=== PATIENT | male | born 1985 | race Caucasian/White ===

== ENCOUNTER 2020-03-16 19:32 | Inpatient (IN) | payer OTHER, MEDICAID, SELFPAY ==
[2020-03-16 19:35] VITALS: BP 143/91; PULSE 96; RESP 24; TEMP 36.6; O2SAT 100; BMI 26.4
--- NOTE | 2020-03-16 19:49 | ED_ITS ---
HPI - Abdominal Pain <МАРИЯ Randall - Last Filed: 03/16/20 22:11> General Chief Complaint: Abdominal Pain Stated Complaint: GALL BLADDER ISSUES PREV/ SOB CHEST PAIN/SHOULDER Time Seen by Provider: 03/16/20 19:36 Source: patient Mode of arrival: Ambulatory Limitations: no limitations History of Present Illness HPI narrative: This is a 34 old male, smoker, with history of ADHD, back/leg pain, gallbladder and pancreas issues for last 1.5 year who recently was hospitalized at [facility] on 02/15/20-02/18/20 with pancreatitis and pneumonia and acute respiratory failure with hypoxia. He is here today with his significant other with chief complain of abdominal pain and nausea vomiting which started yesterday afternoon that has been progressively worsened. Patient reports pain is 8/10 with short of breath. Patient denies fever, chills. Patient states he had multiple tests while hospitalized such as echocardiogram, EKG, blood tests, lipase, CT and ultrasound (which was not able to locate in the record). He stays drinks 2 alcohol beverages about twice a week and he had a beer yesterday, takes MJ gummies occasionally but denies IV drug use. Has history of appendectomy and rhinoplasty. He takes Percocet occasionally for back and leg pain which she had taken 2 days ago. According to [facility] medical records, his initial lipase was 1600 which had improved to 75 and he was able to tolerate regular dietbefore discharged to home. On the 2nd day of admission he developed respiratory failure with hypoxia with O2 sat down to 55% in room air. At that time, CT for PE test was done with negative findings. Echocardiogram was done as well with EF of 60 to 65% without valvular defects. [place] test was negative at that time. Chest x-ray indicated by basilar infiltrates. CT of Abd/Pelvis indicated fatty infiltrated liver; pancreas is grossly unremarkable but with peripancreatic infiltration of the fat and minimal retroperitoneal pancreatic fluid. No pancreatic pseudocysts were appreciated. Gallbladder/bile ducts were unremarkable. Patient's condition improved with IV antibiotic medications and his O2 sat improved to 94% in room air and was discharged to home with 5 day course of Augmentin and small dose of oxycodone and to follow-up with primary care physician and to discuss referral to GI specialist. Related Data Home Medications Medication Instructions Recorded Confirmed dextroamphetamine-amphetamine 15 mg PO BID 03/17/20 03/17/20 Allergies Allergy/AdvReac Type Severity Reaction Status Date / Time vancomycin AdvReac Verified 03/16/20 21:00 Review of Systems <МАРИЯ Randall - Last Filed: 03/16/20 22:11> Review of Systems Narrative: General: Denies fever, chills, fatigue, malaise, sweats. HEENT: Denies sinus pain, ear pain, sore throat, difficulty swallowing, dizziness. Respiratory: Denies dyspnea, cough, wheezing, hemoptysis, sputum. Cardiovascular: Denies chest pain, palpitations, orthopnea, edema. Gastrointestinal: See HPI : Denies dysuria, frequency, incontinence, hematuria, urinary retention. Musculoskeletal: Denies weakness, joint pain or bony pain. Skin: Denies rash, skin lesions, or other. Neurologic: Denies weakness, headache, numbness, change in speech, confusion, seizures, incoordination. Psychiatric: No concerning psychosocial issues. 12-point review of systems is negative except for those stated above. Patient History <МАРИЯ Randall - Last Filed: 03/16/20 22:11> Family History (Updated 03/16/20 @ 23:43 by Martina Toscano MD) Mother Bipolar affective disorder Grandmother Pancreatitis Social History household members: none Smoking Status: Current some day smoker alcohol intake: current Smoking Status: Current every day smoker alcohol intake frequency: a few times a week Substance Use Type: marijuana Exam <МАРИЯ Randall - Last Filed: 03/16/20 22:11> Narrative Exam Narrative: GEN: Alert, oriented x 3, appears to be in discomfort and moderate distress. Holding the epigastric region and rocking back and forth while in gurney. Head: Normal cephalic, atraumatic. No scalp or temporal tenderness, palpable mass or rash. EYES: Pupils are equal, round, and reactive to light and accommodation. Ex traocular muscles are intact bilaterally. There is no subconjunctival hemorrhage, exudate and sclera non-icteric. ENT: Hearing grossly intact. Nose without bleeding, purulent discharge or deviation. Mucous membrane moist, no mucosal lesion. Throat without erythema, tonsillar hypertrophy or exudate. Uvula in midline, airway patent. Neck: Trachea in midline. No JVD, non-tender without lymphadenopathy. No masses or thyroid megaly. Supple, non-tender and no meningeal signs. CARDIAC: Normal regular rate and rhythm without murmurs, gallops, or rubs. No chest wall tenderness. No peripheral edema, cyanosis or pallor. Capillary refill is less than 2 seconds. RESPIRATORY: Lungs are clear to auscultate bilaterally. No cough, wheezes, rales, or rhonchi. No stridor, respiratory distress, increase work of breathing, or accessary muscle used. ABD: Abdomen soft and nondistended. Tender to palpate bilateral upper quadrants and epigastric region. No guarding or rebound tenderness to palpate. Bowel sounds are normal in all 4 quadrants. There is no palpable masses or organomegaly. EXT: Full painless ROM of all extremities with no loss of sensation, strength, effusion or edema. SKIN: Warm, dry, normal color for patient. No erythema, lesions or rash over visible areas. BACK: Nontender without deformity or crepitance. No flank tenderness. NEUROLOGICAL: Alert and oriented to place, time and person. Sensation and motor function intact bilaterally. No facial droops, dysphasia. PSYCHIATRIC: Good judgement and reason, without hallucinations, abnormal affect or abnormal behaviors during the examination. Patient is not suicidal. Initial Vital Signs Initial Vital Signs: Vital Signs Temperature 97.9 F 03/16/20 19:35 Pulse Rate 96 H 03/16/20 19:35 Respiratory Rate 24 03/16/20 19:35 Blood Pressure 143/91 H 03/16/20 19:35 Pulse Oximetry 100 03/16/20 19:35 <Logan Gardner DO - Last Filed: 03/17/20 05:35> Initial Vital Signs Initial Vital Signs: Vital Signs Temperature 97.9 F 03/16/20 19:35 Pulse Rate 96 H 03/16/20 19:35 Respiratory Rate 24 03/16/20 19:35 Blood Pressure 143/91 H 03/16/20 19:35 Pulse Oximetry 100 03/16/20 19:35 Scores <МАРИЯ Randall - Last Filed: 03/16/20 22:11> GCS [place] coma scale eye opening: Spontaneous [place] coma scale verbal response: Orientated [place] coma scale motor response: Obey commands [place] coma scale total score: 15 Course <Julian Lilo МАРИЯ - Last Filed: 03/16/20 22:11> Orders Ordered: ED Orders 03/16/20 20:30 XR chest 1V Stat 03/16/20 20:45 US abdomen limited Stat Bisacodyl (Dulcolax) 10 mg AL DAILY PRN PRN Reason: Constipation Enoxaparin Sodium (Lovenox) 40 mg SUBCUT DAILY [facility] Hydromorphone HCl (Dilaudid) 2 mg IV Q2H PRN PRN Reason: Pain, Severe (7-10) Last Admin: 03/17/20 03:45 Dose: 2 mg Documented by: RAMÍREZ Lactated Ringer's (Lactated Ringers) 1,000 mls @ 150 mls/hr IV CONT KATYA Last Admin: 03/17/20 00:08 Dose: 150 mls/hr Documented by: RAMÍREZ Famotidine (Pepcid) 20 mg in 50 mls @ 200 mls/hr IV Q12HR [facility] Last Infusion: 03/17/20 00:30 Dose: 0 mls/hr Documented by: Admin: 03/17/20 00:14 Dose: Not Given Documented by: Admin: 03/17/20 00:14 Dose: 200 mls/hr Documented by: RAMÍREZ Naloxone HCl (Narcan) 0.2 mg IV Q2MIN PRN PRN Reason: Opiate Reversal Ondansetron HCl (Zofran) 4 mg IV Q8HR PRN PRN Reason: Nausea And Vomiting Discontinued Medications Hydromorphone HCl (Dilaudid) 1 mg IV NOW ONE Stop: 03/16/20 20:20 Last Admin: 03/16/20 20:39 Dose: 1 mg Documented by: KURT Hydromorphone HCl (Dilaudid) 1 mg IV NOW ONE Stop: 03/16/20 21:08 Last Admin: 03/16/20 21:33 Dose: 1 mg Documented by: KURT Hydromorphone HCl (Dilaudid) 1.5 mg IV Q2H PRN PRN Reason: Pain, Severe (7-10) Last Admin: 03/17/20 02:04 Dose: 1.5 mg Documented by: Admin: 03/17/20 00:15 Dose: 1.5 mg Documented by: RAMÍREZ Sodium Chloride (Normal Saline 0.9%) 1,000 mls @ 150 mls/hr IV CONT KATYA Last Infusion: 03/16/20 22:52 Dose: 0 mls/hr Documented by: Admin: 03/16/20 19:59 Dose: 150 mls/hr Documented by: KURT Morphine Sulfate (Morphine) 4 mg IV NOW ONE Stop: 03/16/20 19:48 Last Admin: 03/16/20 19:59 Dose: 4 mg Documented by: KURT Ondansetron HCl (Zofran) 4 mg IV NOW ONE Stop: 03/16/20 19:47 Last Admin: 03/16/20 20:00 Dose: 4 mg Documented by: KURT Pantoprazole Sodium (Protonix) 40 mg IV NOW ONE Stop: 03/16/20 20:20 Last Admin: 03/16/20 20:39 Dose: 40 mg Documented by: KURT Vital Signs Vital signs: Vital Signs - 8 hr 03/16/20 19:35 03/16/20 20:45 Temperature 97.9 F Pulse Rate 96 H 78 Respiratory Rate 24 18 Blood Pressure 143/91 H Blood Pressure [Left Arm] 156/99 H Pulse Oximetry 100 96 <Logan Gardner, - Last Filed: 03/17/20 05:35> Orders Ordered: ED Orders 03/16/20 20:30 XR chest 1V Stat 03/16/20 20:45 US abdomen limited Stat Bisacodyl (Dulcolax) 10 mg AL DAILY PRN PRN Reason: Constipation Enoxaparin Sodium (Lovenox) 40 mg SUBCUT DAILY [facility] Hydromorphone HCl (Dilaudid) 2 mg IV Q2H PRN PRN Reason: Pain, Severe (7-10) Last Admin: 03/17/20 03:45 Dose: 2 mg Documented by: RAMÍREZ Lactated Ringer's (Lactated Ringers) 1,000 mls @ 150 mls/hr IV CONT KATYA Last Admin: 03/17/20 00:08 Dose: 150 mls/hr Documented by: RAMÍREZ Famotidine (Pepcid) 20 mg in 50 mls @ 200 mls/hr IV Q12HR [facility] Last Infusion: 03/17/20 00:30 Dose: 0 mls/hr Documented by: Admin: 03/17/20 00:14 Dose: Not Given Documented by: Admin: 03/17/20 00:14 Dose: 200 mls/hr Documented by: RAMÍREZ Naloxone HCl (Narcan) 0.2 mg IV Q2MIN PRN PRN Reason: Opiate Reversal Ondansetron HCl (Zofran) 4 mg IV Q8HR PRN PRN Reason: Nausea And Vomiting Discontinued Medications Hydromorphone HCl (Dilaudid) 1 mg IV NOW ONE Stop: 03/16/20 20:20 Last Admin: 03/16/20 20:39 Dose: 1 mg Documented by: KURT Hydromorphone HCl (Dilaudid) 1 mg IV NOW ONE Stop: 03/16/20 21:08 Last Admin: 03/16/20 21:33 Dose: 1 mg Documented by: KURT Hydromorphone HCl (Dilaudid) 1.5 mg IV Q2H PRN PRN Reason: Pain, Severe (7-10) Last Admin: 03/17/20 02:04 Dose: 1.5 mg Documented by: Admin: 03/17/20 00:15 Dose: 1.5 mg Documented by: RAMÍREZ Sodium Chloride (Normal Saline 0.9%) 1,000 mls @ 150 mls/hr IV CONT [facility] Last Infusion: 03/16/20 22:52 Dose: 0 mls/hr Documented by: Admin: 03/16/20 19:59 Dose: 150 mls/hr Documented by: KURT Morphine Sulfate (Morphine) 4 mg IV NOW ONE Stop: 03/16/20 19:48 Last Admin: 03/16/20 19:59 Dose: 4 mg Documented by: KURT Ondansetron HCl (Zofran) 4 mg IV NOW ONE Stop: 03/16/20 19:47 Last Admin: 03/16/20 20:00 Dose: 4 mg Documented by: KURT Pantoprazole Sodium (Protonix) 40 mg IV NOW ONE Stop: 03/16/20 20:20 Last Admin: 03/16/20 20:39 Dose: 40 mg Documented by: ZGELEYN Vital Signs Vital signs: Vital Signs - 8 hr 03/16/20 19:35 03/16/20 20:45 Temperature 97.9 F Pulse Rate 96 H 78 Respiratory Rate 24 18 Blood Pressure 143/91 H Blood Pressure [Left Arm] 156/99 H Pulse Oximetry 100 96 MDM - Abdominal Pain <Julian BRUCE NagyP - Last Filed: 03/16/20 22:11> Differential Diagnosis Differential diagnosis: Likely abdominal pain, pancreatitis and other (Cholecystitis, cholelithiasis, pneumonia, [place]) Medical Records Attestation: I reviewed the patient's medical records. Lab Data Attestation: I reviewed the patient's lab results. Result diagrams: 03/16/20 19:52 03/16/20 19:52 Labs: Lab Results 03/16/20 03/16/20 03/16/20 Range/Units 19:52 19:52 19:52 WBC 8.3 (4.5-11.0) X10^3/uL RBC 5.14 (4.5-5.9) X10^6/uL Hgb 16.9 (13.5-17.5) g/dL Hct 46.9 (41-53) % MCV 91.4 (80-100) fL MCH 32.8 (26-34) PG MCHC 35.9 (30-36) % RDW 14.0 (11.6-14.8) % Plt Count 202 (150-400) X10^3/uL Neut % (Auto) 65.4 (50-75) % Lymph % (Auto) 21.4 L (25-40) % [place] % (Auto) 7.0 (3-14) % Eos % (Auto) 5.8 H (2-4) % Baso % (Auto) 0.4 (0-2) % Neut # (Auto) 5400 (2064-6318) /uL Lymph # (Auto) 1800 (6739-9477) /uL [place] # (Auto) 600 (0-900) /uL Eos # (Auto) 500 H (0-450) /uL Baso # (Auto) 0 (0-100) /uL PT (10.1-12.7) SECONDS INR (0.9-1.3) APTT (26.4-36.2) SECONDS Sodium 138 (137-145) mmol/L Potassium 3.9 (3.4-5.1) mmol/L Chloride 107 (98-107) mmol/L Carbon Dioxide 22 (22-32) mmol/L BUN 14 (9-20) mg/dL Creatinine 0.73 (0.66-1.25) mg/dL Estimated GFR > 60.0 (>60) mL/min BUN/Creatinine Ratio 19.2 (6-22) Glucose 133 H (70-100) mg/dL Lactate (0.7-2.1) mmol/L Calcium 9.4 (8.4-10.2) mg/dL Total Bilirubin 0.4 (0.2-1.3) mg/dL AST 49 (17-59) IU/L ALT 44 (<50) IU/L Alkaline Phosphatase 102 (38-126) U/L Total Creatine Kinase (55-170) U/L CK-MB (CK-2) (<2.37) ng/mL CK-MB (CK-2) Rel Index (1.5-5.0) % Troponin I (0.01-0.034) ng/mL Total Protein 7.8 (6.3-8.2) g/dL Albumin 4.4 (3.5-5.0) g/dL Globulin 3.4 (1.7-4.1) g/dL Albumin/Globulin Ratio 1.3 (1.0-2.8) Lipase 4425 H (23-300) U/L Procalcitonin < 0.05 (<0.5) ng/mL Urine RBC (0-5/HPF) Urine WBC (0-5/HPF) Ur Squamous Epith Cells (0-5/HPF) Calcium Oxalate Crystal Urine Bacteria (None) Urine Mucus (Negative) Ur Culture Indicated? 03/16/20 03/16/20 03/16/20 Range/Units 19:52 19:52 19:52 WBC (4.5-11.0) X10^3/uL RBC (4.5-5.9) X10^6/uL Hgb (13.5-17.5) g/dL Hct (41-53) % MCV (80-100) fL MCH (26-34) PG MCHC (30-36) % RDW (11.6-14.8) % Plt Count (150-400) X10^3/uL Neut % (Auto) (50-75) % Lymph % (Auto) (25-40) % [place] % (Auto) (3-14) % Eos % (Auto) (2-4) % Baso % (Auto) (0-2) % Neut # (Auto) (2843-5109) /uL Lymph # (Auto) (8909-4126) /uL [place] # (Auto) (0-900) /uL Eos # (Auto) (0-450) /uL Baso # (Auto) (0-100) /uL PT 10.2 (10.1-12.7) SECONDS INR 0.9 (0.9-1.3) APTT 30 (26.4-36.2) SECONDS Sodium (137-145) mmol/L Potassium (3.4-5.1) mmol/L Chloride (98-107) mmol/L Carbon Dioxide (22-32) mmol/L BUN (9-20) mg/dL Creatinine (0.66-1.25) mg/dL Estimated GFR (>60) mL/min BUN/Creatinine Ratio (6-22) Glucose (70-100) mg/dL Lactate 1.6 (0.7-2.1) mmol/L Calcium (8.4-10.2) mg/dL Total Bilirubin (0.2-1.3) mg/dL AST (17-59) IU/L ALT (<50) IU/L Alkaline Phosphatase (38-126) U/L Total Creatine Kinase 165 (55-170) U/L CK-MB (CK-2) 0.79 (<2.37) ng/mL CK-MB (CK-2) Rel Index 0.5 L (1.5-5.0) % Troponin I < 0.012 (0.01-0.034) ng/mL Total Protein (6.3-8.2) g/dL Albumin (3.5-5.0) g/dL Globulin (1.7-4.1) g/dL Albumin/Globulin Ratio (1.0-2.8) Lipase (23-300) U/L Procalcitonin (<0.5) ng/mL Urine RBC (0-5/HPF) Urine WBC (0-5/HPF) Ur Squamous Epith Cells (0-5/HPF) Calcium Oxalate Crystal Urine Bacteria (None) Urine Mucus (Negative) Ur Culture Indicated? 03/16/20 Range/Units 20:13 WBC (4.5-11.0) X10^3/uL RBC (4.5-5.9) X10^6/uL Hgb (13.5-17.5) g/dL Hct (41-53) % MCV (80-100) fL MCH (26-34) PG MCHC (30-36) % RDW (11.6-14.8) % Plt Count (150-400) X10^3/uL Neut % (Auto) (50-75) % Lymph % (Auto) (25-40) % [place] % (Auto) (3-14) % Eos % (Auto) (2-4) % Baso % (Auto) (0-2) % Neut # (Auto) (2488-2643) /uL Lymph # (Auto) (6266-5090) /uL [place] # (Auto) (0-900) /uL Eos # (Auto) (0-450) /uL Baso # (Auto) (0-100) /uL PT (10.1-12.7) SECONDS INR (0.9-1.3) APTT (26.4-36.2) SECONDS Sodium (137-145) mmol/L Potassium (3.4-5.1) mmol/L Chloride (98-107) mmol/L Carbon Dioxide (22-32) mmol/L BUN (9-20) mg/dL Creatinine (0.66-1.25) mg/dL Estimated GFR (>60) mL/min BUN/Creatinine Ratio (6-22) Glucose (70-100) mg/dL Lactate (0.7-2.1) mmol/L Calcium (8.4-10.2) mg/dL Total Bilirubin (0.2-1.3) mg/dL AST (17-59) IU/L ALT (<50) IU/L Alkaline Phosphatase (38-126) U/L Total Creatine Kinase (55-170) U/L CK-MB (CK-2) (<2.37) ng/mL CK-MB (CK-2) Rel Index (1.5-5.0) % Troponin I (0.01-0.034) ng/mL Total Protein (6.3-8.2) g/dL Albumin (3.5-5.0) g/dL Globulin (1.7-4.1) g/dL Albumin/Globulin Ratio (1.0-2.8) Lipase (23-300) U/L Procalcitonin (<0.5) ng/mL Urine RBC 0-1/hpf (0-5/HPF) Urine WBC 0-1/hpf (0-5/HPF) Ur Squamous Epith Cells 0-1 /hpf (0-5/HPF) Calcium Oxalate Crystal Moderate H Urine Bacteria Occasional (0-1) (None) Urine Mucus 1+ H (Negative) Ur Culture Indicated? Cult not indicated Point of care testing: Urine Dip Bedside Urine Glucose Negative Bedside Urine Bilirubin + 1 Bedside Urine Ketone + 15 Urine Specific [place] 1.030 Bedside Urine Occult Blood - Negative Bedside Urine pH 5.5 Bedside Urine Protein + 30 Bedside Urine Urobilinogen - Negative Bedside Urine Nitrite - Negative Bedside Urine Leukocytes +/- 15 Esterase Imaging Data US - abdomen: Radiologist's Impression: [address] [address] Ultrasound Report Signed Patient: Ananth Jordna [facility]#: [id number] : 1985Acct:[id number] Age/Sex: 34 / MDate of Service: 03/16/20 Loc: ED Accession Number: [id number] Procedure: US abdomen limited Ordering Provider: Julian Nagy PROCEDURE: US ABDOMEN LIMITED INDICATIONS: EPIGASTRIC PAIN; ELEVATED LFTS TECHNIQUE: Real-time focused scanning was performed of the abdomen, with image documentation. COMPARISON: None. FINDINGS: The gallbladder is normal without stones, sludge, wall thickening, or pericholecystic fluid. The liver demonstrates moderately increased echogenicity diffusely. The extrahepatic common duct is normal caliber at 5.8 mm. The pancreas was not well seen. IMPRESSION: 1. Normal gallbladder. 2. Moderate hepatic steatosis or other intrinsic liver disease. Dictated by: Tanya Heck M.D. on 03/16/2020 at 21:48 Approved by: Tanya Heck M.D. on 03/16/2020 at 21:50 Chest x-ray: Radiologist's Impression: [address] [address] XRay Report Signed Patient: Ananth Jordan [facility]#: [id number] : 1985Acct:[id number] Age/Sex: 34 / MDate of Service: 03/16/20 Loc: ED Accession Number: [id number] Procedure: XR chest 1V Ordering Provider: Julian Nagy PROCEDURE: XR CHEST 1V INDICATIONS: c/o SOB, hx of bilateral bibasilar pneumonia about a month a TECHNIQUE: One view of the chest was acquired. COMPARISON: None. FINDINGS: Surgical changes and devices: None. Lungs and pleura: Lung volumes are low. [place] alveolar densities are seen in the infrahilar regions superimposed on scattered peribronchial thickening, particularly in the left suprahilar region. No pleural effusions or pneumothorax. Mediastinum: Mediastinal contours appear normal. Heart size is normal. Bones and chest wall: No suspicious bony lesions. Overlying soft tissues appear unremarkable. IMPRESSION: 1. Low lung volumes accentuate the bronchovascular markings. 2. Perihilar peribronchial thickening and questionable infrahilar streaky opacities. Suggest 2 view chest with improved inspiratory effort. Dictated by: Tanya Heck M.D. on 03/16/2020 at 21:27 Approved by: Tanya Heck M.D. on 03/16/2020 at 21:28 ECG Data Attestation: I personally reviewed and interpreted this ECG as follows: Prior ECG tracings: not available for review Interpretation: Sinus rhythm rate at 77. Normal [place]. AL interval 141, QRS duration 94, QT/QTC 365/395. No ST elevation or inverted T-waves. Q-waves in V1 and V2. MDM Narrative Medical decision making narrative: This is a 34-year-old male who presents to ED with epigastric pain and nausea and vomiting without fever or chills for last 2 days and short of breath. Patient was recently was treated for acute pancreatitis month ago and bilateral bibasilar pneumonia with acute respiratory failure at [facility] a month with hospitalization for 4 days. Patient states he has been able to tolerating small meals after he was dis charged to home. Lung sounds are clear to auscultate with O2 sat 100% in when he arrived. Initially patient had tachypnea with severe pain which improved to 18/min. Patient is afebrile with normal heart rate and slightly tachycardic. No leukocytosis with WBC of 8.3. Significantly elevated lipase of 4425 with normal liver function tests. Glucose 133 with normal lactate and procalcitonin. EKG was sinus rhythm without acute findings. Cardiac enzymes were negative. Normal coag and total bilirubin. Chest x-ray indicates perihilar peribronchial thickening and questionable infra healer streaky opacity. Patient's physical exam and O2 reading in room air is assuring. Dr. Toscano was consulted for an admission for acute pancreatitis and she recommended ultrasound test on abdomen to rule out impacted gallstone. Will consider MRCP tomorrow to follow up. The patient will be admitted for further evaluation and treatment for acute pancreatitis and etiology. Dr. Toscano kindly accepted patient's care for inpatient admission. Patient was treated with IV fluid, Zofran, several doses of morphine 4 mg, 1 mg Dilaudid x2, Protonix 40 mg for pain management. <Logan Gardner, - Last Filed: 03/17/20 05:35> Lab Data Labs: Lab Results 03/16/20 03/16/20 03/16/20 Range/Units 19:52 19:52 19:52 WBC 8.3 (4.5-11.0) X10^3/uL RBC 5.14 (4.5-5.9) X10^6/uL Hgb 16.9 (13.5-17.5) g/dL Hct 46.9 (41-53) % MCV 91.4 (80-100) fL MCH 32.8 (26-34) PG MCHC 35.9 (30-36) % RDW 14.0 (11.6-14.8) % Plt Count 202 (150-400) X10^3/uL Neut % (Auto) 65.4 (50-75) % Lymph % (Auto) 21.4 L (25-40) % [place] % (Auto) 7.0 (3-14) % Eos % (Auto) 5.8 H (2-4) % Baso % (Auto) 0.4 (0-2) % Neut # (Auto) 5400 (1815-3028) /uL Lymph # (Auto) 1800 (7254-9687) /uL [place] # (Auto) 600 (0-900) /uL Eos # (Auto) 500 H (0-450) /uL Baso # (Auto) 0 (0-100) /uL PT (10.1-12.7) SECONDS INR (0.9-1.3) APTT (26.4-36.2) SECONDS Sodium 138 (137-145) mmol/L Potassium 3.9 (3.4-5.1) mmol/L Chloride 107 (98-107) mmol/L Carbon Dioxide 22 (22-32) mmol/L BUN 14 (9-20) mg/dL Creatinine 0.73 (0.66-1.25) mg/dL Estimated GFR > 60.0 (>60) mL/min BUN/Creatinine Ratio 19.2 (6-22) Glucose 133 H (70-100) mg/dL Lactate (0.7-2.1) mmol/L Calcium 9.4 (8.4-10.2) mg/dL Total Bilirubin 0.4 (0.2-1.3) mg/dL AST 49 (17-59) IU/L ALT 44 (<50) IU/L Alkaline Phosphatase 102 (38-126) U/L Total Creatine Kinase (55-170) U/L CK-MB (CK-2) (<2.37) ng/mL CK-MB (CK-2) Rel Index (1.5-5.0) % Troponin I (0.01-0.034) ng/mL Total Protein 7.8 (6.3-8.2) g/dL Albumin 4.4 (3.5-5.0) g/dL Globulin 3.4 (1.7-4.1) g/dL Albumin/Globulin Ratio 1.3 (1.0-2.8) Lipase 4425 H (23-300) U/L Procalcitonin < 0.05 (<0.5) ng/mL Urine RBC (0-5/HPF) Urine WBC (0-5/HPF) Ur Squamous Epith Cells (0-5/HPF) Calcium Oxalate Crystal Urine Bacteria (None) Urine Mucus (Negative) Ur Culture Indicated? 03/16/20 03/16/20 03/16/20 Range/Units 19:52 19:52 19:52 WBC (4.5-11.0) X10^3/uL RBC (4.5-5.9) X10^6/uL Hgb (13.5-17.5) g/dL Hct (41-53) % MCV (80-100) fL MCH (26-34) PG MCHC (30-36) % RDW (11.6-14.8) % Plt Count (150-400) X10^3/uL Neut % (Auto) (50-75) % Lymph % (Auto) (25-40) % [place] % (Auto) (3-14) % Eos % (Auto) (2-4) % Baso % (Auto) (0-2) % Neut # (Auto) (7841-3191) /uL Lymph # (Auto) (5109-7620) /uL [place] # (Auto) (0-900) /uL Eos # (Auto) (0-450) /uL Baso # (Auto) (0-100) /uL PT 10.2 (10.1-12.7) SECONDS INR 0.9 (0.9-1.3) APTT 30 (26.4-36.2) SECONDS Sodium (137-145) mmol/L Potassium (3.4-5.1) mmol/L Chloride (98-107) mmol/L Carbon Dioxide (22-32) mmol/L BUN (9-20) mg/dL Creatinine (0.66-1.25) mg/dL Estimated GFR (>60) mL/min BUN/Creatinine Ratio (6-22) Glucose (70-100) mg/dL Lactate 1.6 (0.7-2.1) mmol/L Calcium (8.4-10.2) mg/dL Total Bilirubin (0.2-1.3) mg/dL AST (17-59) IU/L ALT (<50) IU/L Alkaline Phosphatase (38-126) U/L Total Creatine Kinase 165 (55-170) U/L CK-MB (CK-2) 0.79 (<2.37) ng/mL CK-MB (CK-2) Rel Index 0.5 L (1.5-5.0) % Troponin I < 0.012 (0.01-0.034) ng/mL Total Protein (6.3-8.2) g/dL Albumin (3.5-5.0) g/dL Globulin (1.7-4.1) g/dL Albumin/Globulin Ratio (1.0-2.8) Lipase (23-300) U/L Procalcitonin (<0.5) ng/mL Urine RBC (0-5/HPF) Urine WBC (0-5/HPF) Ur Squamous Epith Cells (0-5/HPF) Calcium Oxalate Crystal Urine Bacteria (None) Urine Mucus (Negative) Ur Culture Indicated? 03/16/20 Range/Units 20:13 WBC (4.5-11.0) X10^3/uL RBC (4.5-5.9) X10^6/uL Hgb (13.5-17.5) g/dL Hct (41-53) % MCV (80-100) fL MCH (26-34) PG MCHC (30-36) % RDW (11.6-14.8) % Plt Count (150-400) X10^3/uL Neut % (Auto) (50-75) % Lymph % (Auto) (25-40) % [place] % (Auto) (3-14) % Eos % (Auto) (2-4) % Baso % (Auto) (0-2) % Neut # (Auto) (3174-3817) /uL Lymph # (Auto) (9611-5888) /uL [place] # (Auto) (0-900) /uL Eos # (Auto) (0-450) /uL Baso # (Auto) (0-100) /uL PT (10.1-12.7) SECONDS INR (0.9-1.3) APTT (26.4-36.2) SECONDS Sodium (137-145) mmol/L Potassium (3.4-5.1) mmol/L Chloride (98-107) mmol/L Carbon Dioxide (22-32) mmol/L BUN (9-20) mg/dL Creatinine (0.66-1.25) mg/dL Estimated GFR (>60) mL/min BUN/Creatinine Ratio (6-22) Glucose (70-100) mg/dL Lactate (0.7-2.1) mmol/L Calcium (8.4-10.2) mg/dL Total Bilirubin (0.2-1.3) mg/dL AST (17-59) IU/L ALT (<50) IU/L Alkaline Phosphatase (38-126) U/L Total Creatine Kinase (55-170) U/L CK-MB (CK-2) (<2.37) ng/mL CK-MB (CK-2) Rel Index (1.5-5.0) % Troponin I (0.01-0.034) ng/mL Total Protein (6.3-8.2) g/dL Albumin (3.5-5.0) g/dL Globulin (1.7-4.1) g/dL Albumin/Globulin Ratio (1.0-2.8) Lipase (23-300) U/L Procalcitonin (<0.5) ng/mL Urine RBC 0-1/hpf (0-5/HPF) Urine WBC 0-1/hpf (0-5/HPF) Ur Squamous Epith Cells 0-1 /hpf (0-5/HPF) Calcium Oxalate Crystal Moderate H Urine Bacteria Occasional (0-1) (None) Urine Mucus 1+ H (Negative) Ur Culture Indicated? Cult not indicated Point of care testing: Urine Dip Bedside Urine Glucose Negative Bedside Urine Bilirubin + 1 Bedside Urine Ketone + 15 Urine Specific [place] 1.030 Bedside Urine Occult Blood - Negative Bedside Urine pH 5.5 Bedside Urine Protein + 30 Bedside Urine Urobilinogen - Negative Bedside Urine Nitrite - Negative Bedside Urine Leukocytes +/- 15 Esterase Discharge Plan Departure Patient Disposition: Admitted As Inpatient Clinical Impression: Pancreatitis Qualifiers: Chronicity: acute Pancreatitis type: unspecified pancreatitis type Acute pancreatitis complication: unspecified Qualified Code(s): K85.90 - Acute pancreatitis without necrosis or infection, unspecified Discharge Date/Time: 03/16/20 22:55 Referrals: Ramona Alvarez ARNP [Primary Care Provider] - Admit Date/Time: 03/16/20 21:54 Admit Provider: Martina Toscano
[2020-03-16] MEDS: MORPHINE 4 MG/ML INJ IV (19:59)
[2020-03-16] MEDS: SODIUM CHLORIDE 0.9% 1,000 ML 150 ML IV (19:59)
[2020-03-16] MEDS: ONDANSETRON 4 MG/2 ML INJ IV (20:00)
[2020-03-16 20:10] LABS: Alanine Aminotransferase 44 IU/L (<50); Albumin 4.4 g/dL (3.5-5.0); Albumin Globulin Ratio 1.3 (1.0-2.8); Alkaline Phosphatase 102 U/L (38-126); Aspartate Aminotransferase 49 IU/L (17-59); BUN Creatinine Ratio 19.2 (6-22); Bilirubin Total 0.4 mg/dL (0.2-1.3); Blood Urea Nitrogen 14 mg/dL (9-20); Calcium 9.4 mg/dL (8.4-10.2); Carbon Dioxide 22 mmol/L (22-32); Chloride 107 mmol/L (98-107); Estimated Glomerular Filt Rate > 60.0 mL/min (>60); Globulin 3.4 g/dL (1.7-4.1); Glucose 133 mg/dL (70-100); HEMOLYSIS < 15 (0-50); Potassium 3.9 mmol/L (3.4-5.1); Sodium 138 mmol/L (137-145); Total Protein 7.8 g/dL (6.3-8.2)
[2020-03-16 20:11] LABS: Add Manual Diff / Slide Review NO; Basophils Absolute Auto 0 /uL (0-100); Basophils Percent Auto 0.4 % (0-2); Eosinophils Absolute Auto 500 /uL (0-450); Eosinophils Percent Auto 5.8 % (2-4); Hematocrit 46.9 % (41-53); Hemoglobin 16.9 g/dL (13.5-17.5); Lactate (Lactic Acid) 1.6 mmol/L (0.7-2.1); Lymphocytes Absolute Auto 1800 /uL (1100-4500); Lymphocytes Percent Auto 21.4 % (25-40); Mean Corpuscular HGB Conc 35.9 % (30-36); Mean Corpuscular Hemoglobin 32.8 PG (26-34); Mean Corpuscular Volume 91.4 fL (80-100); Monocytes Absolute Auto 600 /uL (0-900); Neutrophils Absolute Auto 5400 /uL (1500-7000); Neutrophils Percent Auto 65.4 % (50-75); Platelet Count 202 X10^3/uL (150-400); Red Blood Cell Count 5.14 X10^6/uL (4.5-5.9); White Blood Cell Count 8.3 X10^3/uL (4.5-11.0)
[2020-03-16 20:15] LABS: INR 0.9 (0.9-1.3); Prothrombin Time 10.2 SECONDS (10.1-12.7)
[2020-03-16 20:17] LABS: PTT Partial Thromboplastin Tim 30 SECONDS (26.4-36.2)
[2020-03-16 20:26] LABS: Lipase 4425 U/L (23-300)
[2020-03-16 20:29] LABS: Creatine Kinase 165 U/L (55-170); Troponin I < 0.012 ng/mL (0.01-0.034)
[2020-03-16 20:30] LABS: CKMB % Relative Index 0.5 % (1.5-5.0); Creatine Kinase MB 0.79 ng/mL (<2.37)
--- NOTE | 2020-03-16 20:30 | DI.RAD.S_ITS ---
PROCEDURE: XR CHEST 1V INDICATIONS: c/o SOB, hx of bilateral bibasilar pneumonia about a month a TECHNIQUE: One view of the chest was acquired. COMPARISON: None. FINDINGS: Surgical changes and devices: None. Lungs and pleura: Lung volumes are low. Strandy alveolar densities are seen in the infrahilar regions superimposed on scattered peribronchial thickening, particularly in the left suprahilar region. No pleural effusions or pneumothorax. Mediastinum: Mediastinal contours appear normal. Heart size is normal. Bones and chest wall: No suspicious bony lesions. Overlying soft tissues appear unremarkable. IMPRESSION: 1. Low lung volumes accentuate the bronchovascular markings. 2. Perihilar peribronchial thickening and questionable infrahilar streaky opacities. Suggest 2 view chest with improved inspiratory effort. Dictated by: Tanya Heck M.D. on 03/16/2020 at 21:27 Approved by: Tanya Heck M.D. on 03/16/2020 at 21:28
[2020-03-16 20:35] LABS: Bacteria Urine Occasional (0-1); Calcium Oxalate Crystals Urine Moderate; Culture Indicated Urine Cult Not Indicated; Mucus Urine 1+ (Negative); RBC Urine 0-1/HPF (0-5/HPF); Squamous Epithelial Cell Urine 0-1 /HPF (0-5/HPF); WBC Urine 0-1/HPF (0-5/HPF)
[2020-03-16] MEDS: PANTOPRAZOLE 40 MG VIAL IV (20:39)
[2020-03-16] MEDS: HYDROMORPHONE 1 MG INJ IV ×2 (20:39→21:33)
[2020-03-16 20:41] LABS: Procalcitonin < 0.05 ng/mL (<0.5)
[2020-03-16 20:45] VITALS: BP 156/99; PULSE 78; RESP 18; O2SAT 96
--- NOTE | 2020-03-16 20:45 | DI.US.S_ITS ---
PROCEDURE: US ABDOMEN LIMITED INDICATIONS: EPIGASTRIC PAIN; ELEVATED LFTS TECHNIQUE: Real-time focused scanning was performed of the abdomen, with image documentation. COMPARISON: None. FINDINGS: The gallbladder is normal without stones, sludge, wall thickening, or pericholecystic fluid. The liver demonstrates moderately increased echogenicity diffusely. The extrahepatic common duct is normal caliber at 5.8 mm. The pancreas was not well seen. IMPRESSION: 1. Normal gallbladder. 2. Moderate hepatic steatosis or other intrinsic liver disease. Dictated by: Tanya Heck M.D. on 03/16/2020 at 21:48 Approved by: Tanya Heck M.D. on 03/16/2020 at 21:50
[2020-03-16 22:00] VITALS: BP 152/106; PULSE 75; RESP 21; O2SAT 97
--- NOTE | 2020-03-16 22:32 | PC.NURSE ---
Patient report was attempted: Ramón was not available.
--- NOTE | 2020-03-16 23:36 | DI.MRI.S_ITS ---
PROCEDURE: MR ABDOMEN WO CON INDICATIONS: r.o biliary lesion as cause of recurrent pancreatitis TECHNIQUE: Coronal HASTE through the abdomen, axial 2-D FLASH in- and [id number], and breath-hold T2 FSE with fat saturation through the biliary system and pancreas. Oblique coronal and axial thin-slice HASTE, radial thick-slab HASTE centered on the extrahepatic bile ducts. COMPARISON: [facility], US, US ABDOMEN LIMITED, 03/16/2020, 21:19. FINDINGS: Image quality: Excellent. Pancreas and biliary system: There is peripancreatic edema along the distal pancreatic body and tail consistent with acute pancreatitis. No loculated peripancreatic fluid collection or pancreatic duct dilatation. No discrete mass identified in the pancreas in the absence of intravenous contrast. Evaluation of the pancreatic duct is limited in the uncinate process. However, the main pancreatic duct appears to empty into the minor papilla with no definite segment visualized connecting to the major papilla. Findings are suggestive of pancreatic divisum. Gallbladder appears within normal limits without gallstones or wall thickening. No biliary ductal dilatation. Other solid organs: The liver demonstrates heterogeneous signal drop out on [id number] imaging consistent with fatty infiltration. Spleen is normal in size. No adrenal nodules. Kidneys demonstrate no hydronephrosis. Nodes and vessels: No retroperitoneal or mesenteric adenopathy by size criteria. Aorta and inferior vena cava are normal in size. Bowel and peritoneum: Unenhanced bowel loops are normal in caliber. No free fluid. Lung bases: No basal pleural effusions. Heart size is normal. Bones and soft tissues: No ventral hernias. Bone marrow is of normal overall signal. IMPRESSION: 1. Findings suggestive of pancreatic divisum, with evaluation limited by suboptimal visualization of the pancreatic duct in the uncinate process. No pancreatic duct dilatation. 2. No evidence of cholelithiasis, choledocholithiasis, or biliary ductal dilatation. 3. Peripancreatic edema consistent with acute pancreatitis. No loculated peripancreatic fluid collections. Dictated by: Santosh García M.D. on 03/17/2020 at 12:04 Approved by: Santosh García M.D. on 03/17/2020 at 12:28
--- NOTE | 2020-03-16 23:37 | P.HP_ITS ---
History of Present Illness History of Present Illness Date Patient Seen: 03/16/20 Chief complaint: GALL BLADDER ISSUES PREV/ SOB CHEST PAIN/SHOULDER Narrative: Patient is a 34-year-old male who presents with a history of recurrent pancreatitis. Patient has had 4 episodes of pancreatitis over the past 2 years. His 1st episode was in September 2018, he then had pancreatitis again in April of 2019. He was hospitalized in January of 2020 at [facility] for recurrent pancreatitis. The note abdominal ultrasound was obtained which was negative. The patient developed severe pneumonia associated with that. He was treated for antibiotics and ultimately discharge. He was in his usual state of health until yesterday when he developed a dull ache in the mid abdomen. He went to sleep and awoke this morning with progressive increasing abdominal pain. He had some nausea. He feels like a brick is in the upper portion of his abdomen. He does admit to drinking although infrequently. He had a glass of wine yesterday and 2 beers 2 days ago. He does take medications for ADHD, out Adderal. Patient's previously diagnosed with sleep apnea and then not diagnosed with sleep apnea. He completed his course of oral antibiotics. Patient was seen and evaluated in the emergency room. His lipase was elevated at over 4000. He did have an abdominal ultrasound which was negative for gallstones or biliary lesions. Patient's LFTs are normal. His white count is normal. Chest x-ray was obtained which showed some old residual hilar infiltrate. Patient is admitted to the hospital for further evaluation of acute pancreatitis. Patient was reportedly told he had gallstones in the past. He was referred to [facility] for a GI appointment but did not get therapy. He has not had any further workup and was discharged from [facility] with plans for an outpatient GI appointment. Patient History Family & Social History Family History (Updated 03/16/20 @ 23:43 by Martina Toscano MD) Mother Bipolar affective disorder Grandmother Pancreatitis Safety & Behavioral: Feels Safe in Current Yes Environment Tobacco & Substance use: Smoking Status Current every day smoker alcohol intake frequency a few times a week Substance Use Type marijuana Meds Home Medications and Allergies Allergies Allergy/AdvReac Type Severity Reaction Status Date / Time vancomycin AdvReac Verified 03/16/20 21:00 Review of Systems Review of Systems ROS: Yes All systems reviewed with the patient and are negative except as otherwise documented Exam Vital Signs (past 8 hours): - 03/16/20 19:35 03/16/20 20:45 03/16/20 22:00 Temperature 97.9 F Pulse Rate 96 H 78 75 Respiratory Rate 24 18 21 Blood Pressure 143/91 H Blood Pressure [Left Arm] 156/99 H 152/106 H Pulse Oximetry 100 96 97 Oxygen Delivery Method Room Air Narrative Exam Narrative: Pleasant 34-year-old male uncomfortable with abdominal pain HEENT: Normocephalic atraumatic, sclerae anicteric, extraocular muscles are intact, oropharynx is clear, neck is supple, no thyromegaly, Lungs: Clear to auscultation Cardiac exam: Regular rate and rhythm normal S1-S2 with a 2/6 systolic ejection murmur Abdomen: Mildly distended, tender in the midepigastric area no board-like rigidity, no rebound tenderness no hepatosplenomegaly noted, no palpable masses, no bruising or in is noted Extremities: No edema Neuro exam cranial nerves 2-12 are intact, strength is symmetric and equal, sensation goes intact, reflexes are 8 Psychiatric exam the patient is awake alert over appropriate and oriented Objective Labs Result Diagrams: 03/16/20 19:52 03/16/20 19:52 Labs: Laboratory Results - last 24 hr 03/16/20 03/16/20 03/16/20 19:52 19:52 19:52 WBC 8.3 RBC 5.14 Hgb 16.9 Hct 46.9 MCV 91.4 MCH 32.8 MCHC 35.9 RDW 14.0 Plt Count 202 Neut % (Auto) 65.4 Lymph % (Auto) 21.4 L [place] % (Auto) 7.0 Eos % (Auto) 5.8 H Baso % (Auto) 0.4 Neut # (Auto) 5400 Lymph # (Auto) 1800 [place] # (Auto) 600 Eos # (Auto) 500 H Baso # (Auto) 0 PT INR APTT Sodium 138 Potassium 3.9 Chloride 107 Carbon Dioxide 22 BUN 14 Creatinine 0.73 Estimated GFR > 60.0 BUN/Creatinine Ratio 19.2 Glucose 133 H Lactate Calcium 9.4 Total Bilirubin 0.4 AST 49 ALT 44 Alkaline Phosphatase 102 Total Creatine Kinase CK-MB (CK-2) CK-MB (CK-2) Rel Index Troponin I Total Protein 7.8 Albumin 4.4 Globulin 3.4 Albumin/Globulin Ratio 1.3 Lipase 4425 H Procalcitonin < 0.05 Urine RBC Urine WBC Ur Squamous Epith Cells Calcium Oxalate Crystal Urine Bacteria Urine Mucus Ur Culture Indicated? 03/16/20 03/16/20 03/16/20 19:52 19:52 19:52 WBC RBC Hgb Hct MCV MCH MCHC RDW Plt Count Neut % (Auto) Lymph % (Auto) [place] % (Auto) Eos % (Auto) Baso % (Auto) Neut # (Auto) Lymph # (Auto) [place] # (Auto) Eos # (Auto) Baso # (Auto) PT 10.2 INR 0.9 APTT 30 Sodium Potassium Chloride Carbon Dioxide BUN Creatinine Estimated GFR BUN/Creatinine Ratio Glucose Lactate 1.6 Calcium Total Bilirubin AST ALT Alkaline Phosphatase Total Creatine Kinase 165 CK-MB (CK-2) 0.79 CK-MB (CK-2) Rel Index 0.5 L Troponin I < 0.012 Total Protein Albumin Globulin Albumin/Globulin Ratio Lipase Procalcitonin Urine RBC Urine WBC Ur Squamous Epith Cells Calcium Oxalate Crystal Urine Bacteria Urine Mucus Ur Culture Indicated? 03/16/20 20:13 WBC RBC Hgb Hct MCV MCH MCHC RDW Plt Count Neut % (Auto) Lymph % (Auto) [place] % (Auto) Eos % (Auto) Baso % (Auto) Neut # (Auto) Lymph # (Auto) [place] # (Auto) Eos # (Auto) Baso # (Auto) PT INR APTT Sodium Potassium Chloride Carbon Dioxide BUN Creatinine Estimated GFR BUN/Creatinine Ratio Glucose Lactate Calcium Total Bilirubin AST ALT Alkaline Phosphatase Total Creatine Kinase CK-MB (CK-2) CK-MB (CK-2) Rel Index Troponin I Total Protein Albumin Globulin Albumin/Globulin Ratio Lipase Procalcitonin Urine RBC 0-1/hpf Urine WBC 0-1/hpf Ur Squamous Epith Cells 0-1 /hpf Calcium Oxalate Crystal Moderate H Urine Bacteria Occasional (0-1) Urine Mucus 1+ H Ur Culture Indicated? Cult not indicated Assessment & Plan Assessment & Plan narrative: Impression 1. 34-year-old male admitted to the hospital with recurrent acute pancreatitis -lipase 4445 -abdominal ultrasound reveals no biliary sludge or gallstones -patient has normal LFTs, and a normal white count -previous CT last month was essentially unremarkable except for pancreatic inflammation and minimal fluid but no pseudocyst -suggest MRCP tomorrow, if MRCP negative, would consult with Gastroenterology -patient may benefit from elective cholecystectomy given recurrent pancreatitis, will defer to General surgery and GI -doubt alcohol as a contributor -will check fasting lipid profile -continue IV hydration, NPO, and pain medication -further recommendations pending the results of above 2. ADHD -Adderall on hold 3. History of obstructive sleep apnea -patient will be on continuous pulse oximetry 4. DVT prophylaxis -Lovenox 40 mg per day Patient is a full code will note that his record accordingly Given the patient's recurrent history of pancreatitis anticipate he will be an inpatient with greater than 48 hours of care.
[2020-03-16 23:45] VITALS: BP 152/86; PULSE 67; RESP 20; TEMP 36.6; O2SAT 96
[2020-03-16 23:56] VITALS: BMI 27.8
[2020-03-17] MEDS: LACTATED RINGERS 1,000 ML 150 ML IV ×3 (00:08→14:39)
[2020-03-17] MEDS: FAMOTIDINE 20 MG/50 ML PIGGYBACK 200 MG IV ×2 (00:14→12:31)
[2020-03-17] MEDS: HYDROMORPHONE 2 MG INJ 1.5 MG IV ×2 (00:15→02:04)
--- NOTE | 2020-03-17 00:52 | PC.ADMIT ---
Addendum entered by Poly Nascimento R.N. 03/17/20 03:35: Notified Dr Toscano that current pain regimen was not as affective, new orders placed. Original Note: [address] Admission Note: The patient,Ananth Jordan,34 y/o, was given written information regarding hospital policies, unit procedures and contact persons. Patient's smoking status: Current some day smoker. Vital Signs - 8 hr 03/16/20 19:35 03/16/20 20:45 03/16/20 22:00 Temperature 97.9 F Pulse Rate 96 H 78 75 Respiratory Rate 24 18 21 Blood Pressure 143/91 H Blood Pressure [Left Arm] 156/99 H 152/106 H Pulse Oximetry 100 96 97 03/16/20 23:45 Temperature 97.8 F Pulse Rate 67 Respiratory Rate 20 Blood Pressure 152/86 H Blood Pressure [Left Arm] Pulse Oximetry 96 Patient arrived at 2245, was already in the room at time of assessment and admission on NOC shift. AxOx3, can make needs known. Reports this is the 4th episode of pancreatitis in 18 months. Clearly in distress at the time of assessment but is calm and appropriate with care, pain at 7/10, medicated per MAR. Lung sounds clear, on RA no cough, c/o SOB related to pain in abdomen. Bowel tones active, passing gas, last BM yesterday. No hx of fall. Elevated BP, denies chest pain. Educated cycle liaison light and use, bed alarm on for safety d/t sedating medications and active IV line, moderate fall risk. Acknowledge all teaching and safety measures.
[2020-03-17] MEDS: HYDROMORPHONE 2 MG INJ IV ×8 (03:45→18:31)
[2020-03-17 04:00] VITALS: BP 147/95; PULSE 82; RESP 18; TEMP 36.5; O2SAT 95
[2020-03-17 05:51] LABS: Alanine Aminotransferase 38 IU/L (<50); Albumin 3.9 g/dL (3.5-5.0); Albumin Globulin Ratio 1.3 (1.0-2.8); Alkaline Phosphatase 86 U/L (38-126); Aspartate Aminotransferase 39 IU/L (17-59); BUN Creatinine Ratio 16.5 (6-22); Bilirubin Total 0.5 mg/dL (0.2-1.3); Blood Urea Nitrogen 13 mg/dL (9-20); Carbon Dioxide 24 mmol/L (22-32); Chloride 108 mmol/L (98-107); Estimated Glomerular Filt Rate > 60.0 mL/min (>60); Globulin 3.1 g/dL (1.7-4.1); Glucose 100 mg/dL (70-100); HEMOLYSIS < 15 (0-50); Potassium 4.2 mmol/L (3.4-5.1); Sodium 138 mmol/L (137-145)
[2020-03-17 05:55] LABS: Cholesterol 172 mg/dL (140-199); HDL Cholesterol 61 mg/dL (40-60); LDL Cholesterol Calculated 68 mg/dL (<100); Triglycerides 216 mg/dL (35-150); VLDL Cholesterol Calculated 43 mg/dL (2-30)
[2020-03-17 05:58] LABS: Lipase 2766 U/L (23-300)
[2020-03-17 08:00] VITALS: BP 142/83; PULSE 76; RESP 18; TEMP 36.1; O2SAT 93
[2020-03-17] MEDS: ENOXAPARIN 40 MG/0.4 ML SYRINGE SUBCUT (08:30)
[2020-03-17 10:15] VITALS: O2SAT 94
[2020-03-17 12:00] VITALS: BP 139/92; PULSE 79; RESP 18; TEMP 36.6; O2SAT 94
--- NOTE | 2020-03-17 13:19 | PC.NURSE ---
Shift summary: A&O X3. Up to BR with SBA, steady on feet. Changed to clear liquid diet this afternoon. Given ice chips, water and jello and encouraged to take slowly. Reported increase in abd discomfort after eating jello so he's taking a break from that. Denies N/V. Abdomen soft, tender, mildly distended and may have increasing distention per patient report. MRI completed, Dr Dasilva aware. Patient able to make needs known and calls appropriately. Call light and belongings within reach.
--- NOTE | 2020-03-17 14:03 | P.DS_ITS ---
History of Present Illness History of Present Illness Date Patient Seen: 03/17/20 Time Patient Seen: 14:03 Chief complaint: GALL BLADDER ISSUES PREV/ SOB CHEST PAIN/SHOULDER Narrative: As per Dr. Toscano, Patient is a 34-year-old male who presents with a history of recurrent pancreatitis. Patient has had 4 episodes of pancreatitis over the past 2 years. His 1st episode was in September 2018, he then had pancreatitis again in April of 2019. He was hospitalized in January of [address] [facility] for recurrent pancreatitis. The note abdominal ultrasound was obtained which was negative. The patient developed severe pneumonia associated with that. He was treated for antibiotics and ultimately discharge. He was in his usual state of health until yesterday when he developed a dull ache in the mid abdomen. He went to sleep and awoke this morning with progressive increasing abdominal pain. He had some nausea. He feels like a brick is in the upper portion of his abdomen. He does admit to drinking although infrequently. He had a glass of wine yesterday and 2 beers 2 days ago. He does take medications for ADHD, out Adderal. Patient's previously diagnosed with sleep apnea and then not diagnosed with sleep apnea. He completed his course of oral antibiotics. Patient was seen and evaluated in the emergency room. His lipase was elevated at over 4000. He did have an abdominal ultrasound which was negative for gallstones or biliary lesions. Patient's LFTs are normal. His white count is normal. Chest x-ray wa s obtained which showed some old residual hilar infiltrate. Patient is admitted to the hospital for further evaluation of acute pancreatitis. Patient was reportedly told he had gallstones in the past. He was referred to [facility] for a GI appointment but did not get therapy. He has not had any further workup and was discharged from [facility] with plans for an outpatient GI appointment. Discharge Providers Provider Date of admission: 03/16/20 21:54 Discharge Date: 03/17/20 Primary care physician: МАРИЯ Soliz Discharge provider: Landon Dasilva DO Summary Hospital Course Discharge Diagnosis: 1. 34-year-old male admitted to the hospital with recurrent acute pancreatitis -lipase 4445 -abdominal ultrasound reveals no biliary sludge or gallstones -patient has normal LFTs, and a normal white count -previous CT last month was essentially unremarkable except for pancreatic inflammation and minimal fluid but no pseudocyst -suggest MRCP tomorrow, if MRCP negative, would consult with Gastroenterology -patient may benefit from elective cholecystectomy given recurrent pancreatitis, will defer to General surgery and GI -doubt alcohol as a contributor -will check fasting lipid profile -continue IV hydration, NPO, and pain medication -further recommendations pending the results of above 2. ADHD 3. History of obstructive sleep apnea Hospital Course: Mr. Jordan is a 34-year-old male with past medical history of pancreatitis, ADHD, and obstructive sleep apnea who was admitted with his 4th episode of pancreatitis in the past year and a half. He had had limited evaluations done previously by a outside hospitals. Abdominal ultrasound here showed no biliary sludge or gallstones, normal LFTs, and no leukocytosis. He had had a previous CT scan of his abdomen which showed pancreatic inflammation but no pseudocyst approximately 1 month ago done at an outside facility. Fasting lipid panel this AM showed a triglyceride level of 216, and patient does not endorse much alcohol intake. He was admitted and given adequate pain control, his abdominal pain improved slightly and he was started on some clear liquids after MRCP was performed. MRCP showed a pancreatic divisum and inflammation consistent with pancreatitis, but no gallbladder or evidence of ductal stones. Discussed with GI Dr. Herrera at [facility], who recommended transfer for additional evaluation including possible EUS or ERCP. Discussed with Dr. Mehta hospitalist, who accepts patient for transfer. Time Spent with Patient Time spent: Greater than 30 minutes Exam Vital Signs (past 8 hours): - 03/17/20 08:00 03/17/20 12:00 Temperature 97.0 F L 97.9 F Pulse Rate 76 79 Respiratory Rate 18 18 Blood Pressure 142/83 H 139/92 H Pulse Oximetry 93 94 Oxygen Delivery Method Room Air Oxygen Flow Rate 0 Narrative Exam Narrative: GENERAL APPEARANCE: Well developed, well nourished, in no acute distress. SKIN: Inspection of the skin reveals no rashes, ulcerations or petechiae. HEENT: Normocephalic atraumatic, extraocular muscles are intact, oropharynx is clear and mucous membranes are moist, neck is supple without adenopathy NECK: Supple and symmetric. There was no thyroid enlargement, and no tenderness, or masses were felt. CHEST: Normal AP diameter and normal contour without any kyphoscoliosis. LUNGS: Auscultation of the lungs revealed no wheezes, rhonchi, or rales. CARDIOVASCULAR: There was a regular rate and rhythm without any murmurs, gallops, rubs. Peripheral pulses were 2+ and symmetric. ABDOMEN: Soft, mild epigastric tenderness, mildly distended. No guarding or rebound. MUSCULOSKELETAL: There was no tenderness or effusions noted. Muscle strength and tone were normal. EXTREMITIES: No cyanosis, clubbing or edema. NEUROLOGIC: Alert and oriented x 3. Normal affect. Gait was normal. Strength is +5/5 in the Upper Extremities and Lower Extremities Bilaterally. Sensation to touch was normal. Objective Labs Result Diagrams: 03/16/20 19:52 03/17/20 05:05 Labs: Laboratory Results - last 24 hr 03/16/20 03/16/20 03/16/20 19:52 19:52 19:52 WBC 8.3 RBC 5.14 Hgb 16.9 Hct 46.9 MCV 91.4 MCH 32.8 MCHC 35.9 RDW 14.0 Plt Count 202 Neut % (Auto) 65.4 Lymph % (Auto) 21.4 L Maverick % (Auto) 7.0 Eos % (Auto) 5.8 H Baso % (Auto) 0.4 Neut # (Auto) 5400 Lymph # (Auto) 1800 Maverick # (Auto) 600 Eos # (Auto) 500 H Baso # (Auto) 0 PT INR APTT Sodium 138 Potassium 3.9 Chloride 107 Carbon Dioxide 22 BUN 14 Creatinine 0.73 Estimated GFR > 60.0 BUN/Creatinine Ratio 19.2 Glucose 133 H Lactate Calcium 9.4 Magnesium Total Bilirubin 0.4 AST 49 ALT 44 Alkaline Phosphatase 102 Total Creatine Kinase CK-MB (CK-2) CK-MB (CK-2) Rel Index Troponin I Total Protein 7.8 Albumin 4.4 Globulin 3.4 Albumin/Globulin Ratio 1.3 Triglycerides Cholesterol LDL Cholesterol, Calc VLDL Cholesterol HDL Cholesterol Lipase 4425 H Procalcitonin < 0.05 Urine RBC Urine WBC Ur Squamous Epith Cells Calcium Oxalate Crystal Urine Bacteria Urine Mucus Ur Culture Indicated? 03/16/20 03/16/20 03/16/20 19:52 19:52 19:52 WBC RBC Hgb Hct MCV MCH MCHC RDW Plt Count Neut % (Auto) Lymph % (Auto) Maverick % (Auto) Eos % (Auto) Baso % (Auto) Neut # (Auto) Lymph # (Auto) Maverick # (Auto) Eos # (Auto) Baso # (Auto) PT 10.2 INR 0.9 APTT 30 Sodium Potassium Chloride Carbon Dioxide BUN Creatinine Estimated GFR BUN/Creatinine Ratio Glucose Lactate 1.6 Calcium Magnesium Total Bilirubin AST ALT Alkaline Phosphatase Total Creatine Kinase 165 CK-MB (CK-2) 0.79 CK-MB (CK-2) Rel Index 0.5 L Troponin I < 0.012 Total Protein Albumin Globulin Albumin/Globulin Ratio Triglycerides Cholesterol LDL Cholesterol, Calc VLDL Cholesterol HDL Cholesterol Lipase Procalcitonin Urine RBC Urine WBC Ur Squamous Epith Cells Calcium Oxalate Crystal Urine Bacteria Urine Mucus Ur Culture Indicated? 03/16/20 03/17/20 03/17/20 20:13 05:05 05:05 WBC RBC Hgb Hct MCV MCH MCHC RDW Plt Count Neut % (Auto) Lymph % (Auto) Maverick % (Auto) Eos % (Auto) Baso % (Auto) Neut # (Auto) Lymph # (Auto) Maverick # (Auto) Eos # (Auto) Baso # (Auto) PT INR APTT Sodium 138 Potassium 4.2 Chloride 108 H Carbon Dioxide 24 BUN 13 Creatinine 0.79 Estimated GFR > 60.0 BUN/Creatinine Ratio 16.5 Glucose 100 Lactate Calcium 9.0 Magnesium 2.0 Total Bilirubin 0.5 AST 39 ALT 38 Alkaline Phosphatase 86 Total Creatine Kinase CK-MB (CK-2) CK-MB (CK-2) Rel Index Troponin I Total Protein 7.0 Albumin 3.9 Globulin 3.1 Albumin/Globulin Ratio 1.3 Triglycerides 216 H Cholesterol 172 LDL Cholesterol, Calc 68 VLDL Cholesterol 43 H HDL Cholesterol 61 H Lipase Procalcitonin Urine RBC 0-1/hpf Urine WBC 0-1/hpf Ur Squamous Epith Cells 0-1 /hpf Calcium Oxalate Crystal Moderate H Urine Bacteria Occasional (0-1) Urine Mucus 1+ H Ur Culture Indicated? Cult not indicated 03/17/20 05:05 WBC RBC Hgb Hct MCV MCH MCHC RDW Plt Count Neut % (Auto) Lymph % (Auto) Maverick % (Auto) Eos % (Auto) Baso % (Auto) Neut # (Auto) Lymph # (Auto) Maverick # (Auto) Eos # (Auto) Baso # (Auto) PT INR APTT Sodium Potassium Chloride Carbon Dioxide BUN Creatinine Estimated GFR BUN/Creatinine Ratio Glucose Lactate Calcium Magnesium Total Bilirubin AST ALT Alkaline Phosphatase Total Creatine Kinase CK-MB (CK-2) CK-MB (CK-2) Rel Index Troponin I Total Protein Albumin Globulin Albumin/Globulin Ratio Triglycerides Cholesterol LDL Cholesterol, Calc VLDL Cholesterol HDL Cholesterol Lipase 2766 H Procalcitonin Urine RBC Urine WBC Ur Squamous Epith Cells Calcium Oxalate Crystal Urine Bacteria Urine Mucus Ur Culture Indicated? Discharge Plan Discharge Plan Patient Disposition: [facility] Discharge comment: 34-year-old gentleman admitted with his 4th episode of pancreatitis in the past year and a half. He is being transferred to [facility] for higher level of care, with GI consultation and possible EUS/ERCP. He is currently on a clear liquid diet, and pain is adequately controlled. Discharge orders & Medications Follow up/Referrals: Ramona Alvarez ARNP [Primary Care Provider] - Discharge Health Status Health Concerns: Recurrent Pancreatitis Diet/Activity/Treatments Diet: Clear Liquid Activity: As tolerated Discharge Data Primary Care Provider: Ramona Alvarez Quality VTE Deep Vein Thrombosis/Pulmonary Embolism Present on Admission: No
--- NOTE | 2020-03-17 15:22 | CM.DANOTE ---
DCP: Case received, EMR reviewed and met with patient. Introduced self and role. Was able to meet with patient to obtain information regarding his baseline activity, health, and living situation. DCP assessment completed with information currently available. Patient is a 34 year old male who admitted yesterday evening to the care of the hospitalist team. PCP: Dr. Alvarez. Payer: confirmed: [employer]. Patient came to the hospital via family vehicle due to abdominal pain. Patient holds current diagnosis of pancreatitus. Patient stated he has been to [facility] several times for the same thing, and send him home, and it keeps flaring up again. Patient denies any alcohol use. Met with patient in his room. Pleasant, alert and oriented, and independent. He lives alone in [place]. He had been in the [employer] for 5 years in para [employer]. Patient stated he also has had history of pneumonia as well. P: Patient is to be transferred to [facility] to see a GI specialist, via ambulance. Cata Sanches RN/Metal Tester
[2020-03-17 15:37] VITALS: BP 131/77; PULSE 100; RESP 20; TEMP 36.7; O2SAT 94
--- NOTE | 2020-03-17 19:44 | PC.NURSE ---
Evening Shift/Transfer Note- PRN IV Dilsudid given per patient request at 1830. Patient tolerated without issue. Patient transfered to [facility] on in [place]. Patient left with all personal belongings via ambulance to [facility] at 1900. Report called to RN at [facility] at 1930.
== END 2020-03-17 18:55 | disposition short-term general hospital (02) | DRG 282 ==
LOC: ED 21:45 → AC 21:55
PROVIDERS: Admitting Provider Internal Medicine; Emergency Provider Nurse Practitioner Family; PCP Nurse Practitioner; Referring Provider Nurse Practitioner Family; Visit Provider Internal Medicine
DX: K85.90 Acute pancreatitis without necrosis or infection, unspecified (principal); Q45.3 Other congenital malformations of pancreas and pancreatic duct; F90.9 Attention-deficit hyperactivity disorder, unspecified type; F17.210 Nicotine dependence, cigarettes, uncomplicated
CPT/HCPCS: 36415; 71045; 74181; 76705; 80053; 80061; 81003; 81015; 82550; 82553; 83605; 83690; 83735; 84145; 84484; 85025; 85610; 85730; 93005; 94762; 96361; 96374; 96375; 96376; 99284; C9113; J1170; J1650; J2270; J2405